=== PATIENT | male | born 1990 | race Caucasian/White ===

== ENCOUNTER 2018-05-14 22:27 | Emergency (ER) | payer SELFPAY ==
[2018-05-14 22:30] VITALS: BP 149/79; PULSE 71; TEMP 98.1; BMI 27.2
[2018-05-15] MEDS ORDERED: NAPROXEN 500 MG TABLET (FP) PO ONE (00:24)
--- NOTE | 2018-05-15 00:25 | PDOC ---
History of Present Illness - General Chief Complaint: Pain, Acute Stated Complaint: RT ARM PAIN Time Seen by Provider: 05/15/18 00:23 - History of Present Illness Initial Comments: 05/15/18 00:24 28 yo M with no significant pmh who p/w R shoulder pain. Patient reports stable , achy right shoulder pain x 5 days following arm extension/punching a punching bag with closed fist. Pain with arm extension. Denies OTC analgesia, or ICE therapy. Denies sensory change. Denies head injury, LOC, neck injury/pain. Patient denies N/V, F,C, CP, SOB, urinary complaints, abdominal pain, diarrhea, constipation, lightheadedness, weakness, sensory changes. PMHx: as noted above ROS: as noted Allergies: NKDA Past History - Past Medical History Allergies/Adverse Reactions: Allergies Allergy/AdvReac Type Severity Reaction Status Date / Time No Known Allergies Allergy Verified 05/14/18 22:30 COPD: No - Suicide/Smoking/Psychosocial Hx Smoking History: Never smoked Review of Systems - Review of Systems Comments:: 05/15/18 00:25 GENERAL/CONSTITUTIONAL: No fever or chills. No weakness. HEAD, EYES, EARS, NOSE AND THROAT: No change in vision. No ear pain or discharge. No sore throat. CARDIOVASCULAR: No chest pain or shortness of breath RESPIRATORY: No cough, wheezing, or hemoptysis. GASTROINTESTINAL: No nausea, vomiting, diarrhea or constipation. GENITOURINARY: No dysuria, frequency, or change in urination. MUSCULOSKELETAL: + R shoulder pain. No joint or muscle swelling. No neck or back pain. SKIN: No rash NEUROLOGIC: No headache, vertigo, loss of consciousness, or change in strength/ sensation. ENDOCRINE: No increased thirst. No abnormal weight change HEMATOLOGIC/LYMPHATIC: No anemia, easy bleeding, or history of blood clots. ALLERGIC/IMMUNOLOGIC: No hives or skin allergy. *Physical Exam - Vital Signs Last Vital Signs Temp Pulse Resp BP Pulse Ox 98.1 F 71 18 149/79 100 05/14/18 22:29 05/14/18 22:29 05/14/18 22:29 05/14/18 22:29 05/14/18 22:29 - Physical Exam Comments: 05/15/18 00:25 GENERAL: Awake, alert, and fully oriented, in no acute distress HEAD: No signs of trauma, normocephalic, atraumatic EYES: PERRLA, EOMI, sclera anicteric, conjunctiva clear ENT: Hearing grossly normal, nares patent, oropharynx clear without exudates. Moist mucosa NECK: Normal ROM, supple, no lymphadenopathy, JVD, or masses LUNGS: No distress, speaks full sentences, clear to auscultation bilaterally HEART: Regular rate and rhythm, normal S1 and S2, no murmurs, rubs or gallops, peripheral pulses normal and equal bilaterally. EXTREMITIES : Normal inspection, Normal range of motion, no edema. No clubbing or cyanosis. RUE: + R shoulder pain, with abduction above 90 degrees. Strength 5/5 BL UE. Absent bony ttp throughout BL UE. Palpable and symmetric radial pulses. SKIN: Warm, Dry, normal turgor, no rashes or lesions noted Moderate Sedation - Procedure Monitoring Vital Signs: Procedure Monitoring Vital Signs Temperature 98.1 F 05/14/18 22:29 Pulse Rate 71 05/14/18 22:29 Respiratory Rate 18 05/14/18 22:29 Blood Pressure 149/79 05/14/18 22:29 O2 Sat by Pulse Oximetry (%) 100 05/14/18 22:29 ED Treatment Course - RADIOLOGY Radiology Studies Ordered: Category Date Time Status SHOULDER-RIGHT [RAD] Stat Radiology 05/15/18 00:24 Ordered Medical Decision Making - Medical Decision Making 05/15/18 02:02 28 yo M with no significant pmh who p/w R shoulder pain. VSS, AF. + R shoulder pain, with abduction above 90 degrees. Strength 5/5 BL UE. R/o R shoulder dislocation, fracture. Likely acute muscle strain/sprain. Ed Course: R SHOULDER RAD Naproxen' R SHOULDER RAD: Unremarkable Naproxen Patient stable for d/c with return precautions. *DC/Admit/Observation/Transfer Diagnosis at time of Disposition: Right shoulder pain Qualifiers: Chronicity: acute Qualified Code(s): M25.511 - Pain in right shoulder - Discharge Dispostion Disposition: HOME Condition at time of disposition: Stable Decision to Admit order: No - Referrals Referrals: Ramirez Salmon MD [Staff Physician] - - Patient Instructions Printed Discharge Instructions: DI for Shoulder Sprain Additional Instructions: Please return to the emergency department with any new or worsening symptoms or concerns. Please follow up with your primary care physician within 72 hours. - Post Discharge Activity - Attestations Physician Attestion: 05/15/18 00:25 I attest to the information provided in this note.
[2018-05-15] MEDS ORDERED: NAPROXEN 500 MG TABLET (FP) ONE (00:30)
--- NOTE | 2018-05-15 02:40 | PDOC ---
Attending Attestation - Resident Resident Name: Vega Puentes - ED Attending Attestation I have performed the following: I have examined & evaluated the patient, The case was reviewed & discussed with the resident, I agree w/resident's findings & plan, Exceptions are as noted - HPI HPI: 05/15/18 02:38 28M with persistent pain to his R shoulder after punching a punching bag, no numbness, weakness - Physicial Exam PE: 05/15/18 02:39 agree with exam as documented by resident - Medical Decision Making 05/15/18 02:39 MSK px from trauma exam inconsistent with dislocation analgesia f/u xr for bony injury/dislocation
== END 2018-05-15 02:37 | disposition home or self-care (01) ==
LOC: JER 22:27
DX: S43.491A Other sprain of right shoulder joint, initial encounter (principal); X50.3XXA Overexertion from repetitive movements, initial encounter; Y93.59 Activity, other involving other sports and athletics played individually; Y92.9 Unspecified place or not applicable; Y99.8 Other external cause status
CPT/HCPCS: 73030-TC-RT-FY; 99281-25